=== PATIENT | female | born 1950 | race Caucasian/White ===

== ENCOUNTER 2018-06-21 05:40 | Inpatient (IN) | payer OTHER ==
[~2018-06-21] VITALS: Ht 160 cm; Wt 86.2 kg
[~2018-06-21 05:40] MED LIST: ALLOPURINOL 10100 M1 PO; AMARYL2 M1 PO; ASPIR 8181 MG PO; CELEXA20 MG PO; LASIX 20 MG TAB20 MG PO; LIPITOR 20 MG T20 M1 PO; LOPRESSOR50 PO; LOSARTAN POTAS100 MG PO; MELATONIN 10 M1 EACH PO; METFORMIN HCL500 MG PO; MULTIVITAMINS PO; NORPRAMIN10 MG PO; PRILOSEC OTC20 MG PO; SYNTHROID150 MCG PO; VITAMIN D32000 UNI1 PO
[2018-06-21 09:15] VITALS: BP 138/74
[2018-06-21 18:04] VITALS: BP 117/70
[2018-06-21 19:45] VITALS: BP 111/44
--- NOTE | 2018-06-21 19:45 | NUR ---
PT ARRIVED FROM PACU AT 17:40 IN STABLE CONDITION. A&O,X4. [address] TO KEEP SATS ABOVE 90%, NO HOME OXYGEN USE NOTED. NO SOA, CLEAR LUNG SOUNDS. S/P RIGHT ANKLE ORIF, RIGHT SPLINT AND GONZALO WRAP IN PLACE. NON-WEIGHT BEARING STATUS RIGHT FOOT. LAINEZ CATHETER IN PLACE DUE TO IMMOBILIZATION. DENIES PAIN. NO OTHER SKIN CONCERNS NOTED. AT BEDSIDE. STATES NO QUESTIONS OR CONCERNS.
[2018-06-21 22:27] LABS: HEMATOCRIT 34.1 % (37.0-47.0); HEMOGLOBIN 11.3 gm/dL (12.0-15.0); MCH 31.8 pg (26.0-34.0); MCV 96.3 fL (80.0-100.0); RBC 3.54 mil/uL (4.20-5.00); RDW 13.8 % (10.5-14.5); WBC 10.2 thou/uL (4.0-11.0)
[2018-06-21 22:49] LABS: ALBUMIN 3.3 g/dL (3.4-5.0); CALCIUM 8.3 mg/dL (8.5-10.1); CREATININE 1.9 mg/dL (0.6-1.0); POTASSIUM 4.1 mmol/L (3.5-5.1); TOTAL BILIRUBIN 0.3 mg/dL (<0.1-1.0); TOTAL PROTEIN 6.6 g/dL (6.4-8.2)
[2018-06-22 00:35] VITALS: BP 98/78
[2018-06-22 04:00] VITALS: BP 113/48
[2018-06-22 05:37] LABS: HEMATOCRIT 30.9 % (37.0-47.0); HEMOGLOBIN 10.6 gm/dL (12.0-15.0); MCH 32.2 pg (26.0-34.0); MCHC 34.2 g/dL (28.0-37.0); MCV 94.1 fL (80.0-100.0); RBC 3.28 mil/uL (4.20-5.00); RDW 13.6 % (10.5-14.5); WBC 10.5 thou/uL (4.0-11.0)
[2018-06-22 05:50] LABS: CALCIUM 8.8 mg/dL (8.5-10.1); CREATININE 1.4 mg/dL (0.6-1.0); MAGNESIUM 1.5 mg/dL (1.8-2.4); POTASSIUM 4.4 mmol/L (3.5-5.1)
--- NOTE | 2018-06-22 06:05 | NUR ---
ASSUMED CARE AT 1900, ASSESSMENT COMPLETED. 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 RIGHT LOWER EXTREMITY WRAPPED WITH BRACE AND GONZALO WRAP, SMALL AMOUNT SANGINOUS DRAINAGE, TOES WARM AND PINK WITH BRISK CAP REFILL. DENIES NAUSEA, TOLERATING ORAL INTAKE, DENIES PASSING GAS BUT HAS ACTIVE BOWEL SOUNDS. DENIES SOB, CLEAR LUNG SOUNDS. OBTAINED ORDERS FOR HOME MEDICATIONS, LABS, PAIN MEDS, AND ABX. HS BLOOD SUGAR 369, GAVE 12 UNITS LISPRO S.S. AND ORAL ANTIDIABETIC MED. ICE PACK LEAKED, SOILING GONZALO WRAP; REMOVED GONZALO, REINFORCED WITH ABD AND KERLIX AND REWRAPPED IN CLEAN GONZALO BANDAGES. LAINEZ IN PLACE DRAINING CLEAR YELLOW URINE; PER PT, SHE IS INCONT OVERNIGHTS WITH FREQ STRESS INCONT DURING THE DAY. NO OTHER CONCERNS, WILL CONTINUE TO MONITOR.
[2018-06-22 09:00] VITALS: BP 92/45
--- NOTE | 2018-06-22 11:55 | NUR ---
ASSUMED PT CARE AT 0700. ASSESSMENT COMPLETED AND IS CHARTED. BLOOD PRESSURE LOW: 92/45. RUDY NOTIFIED AND METOPROLOL HELD. PT IS AWAKE, ALERT/ORIENTED X4. REPORTS VERY LITTLE PAIN, RATES IT 0.5/10. DENIES NEED FOR PAIN MEDICATION HOWEVER DID TAKE ONE FOR THERAPY. PT UP IN CHAIR AT THIS TIME. LAINEZ REMOVED AND NEW IV STARTED RIGHT HAND IV INFILTRATED. IV FLUIDS INFUSING ORDERED FOR BLOOD PRESSURE SUPPORT. WILL CONTINUE WITH CURRENT CARE.
[2018-06-22 14:24] VITALS: BP 103/42
--- NOTE | 2018-06-22 15:22 | NUR ---
PT ADMITTED RELATED TO RIGHT ANKLE ARTHRODESIS. CM REVIEWED CHART AND SPOKE WITH CARE TEAM. CM MET WITH PT AND SPOUSE AT BEDSIDE THIS DAY. PT IS A&O X4. CM ROLE INTRODUCED. PT INDICATED SHE AND SPOUSE LIVE IN A HOUSE WITH WITH NO STEPS TO ENTER AND NO STEPS INSIDE. THEY INDIATED THAT PT HAD USED A CANE TO ASSIST WITH MOBILITY ELECTRICIAN APPRENTICE. PT INDICATED SHE HAD BEEN MOSTLY INDEPENDENT WITH ADLS ELECTRICIAN APPRENTICE AND THAT SPOUSE HAD ASSISTED WHEN NEEDED. PT AND SPOUSE INDICATED THAT THEY ANTICIPATED PT GOING FOR A POST ACUTE CARE STAY ONCE MEDICALLY STABLE. THEY LIVE NEAR [facility]. CM PROVIDED A LIST OF FACILITIES NEAR THERE FOR THEM TO REVIEW. THEY ASKED THAT REFERRALS BE SENT TO [facility] AND [facility] FOR REVIEW. CM TO FOLLOW INDICATED WITH DC PLANNING.
--- NOTE | 2018-06-22 16:24 | NUR ---
FAXED REFERRAL TO [facility] FOR SKILLED STAY LEFT MSG WITH ADM. DIRECTOR GIGI AND WILL F/U WITH THEM IN THE MORNING. DCP TO FOLLOW.
--- NOTE | 2018-06-22 16:38 | NUR ---
PT DOING WELL THIS SHIFT. LAINEZ REMOVED AT 1130, NO VOID YET. PAIN IS WELL-CONTROLLED. HAS NOT REQUESTED PAIN MEDICATION THIS AFTERNOON. UP IN CHAIR WITH FAMILY AT BEDSIDE. WILL CONTINUE WITH CURRENT CARE.
--- NOTE | 2018-06-22 18:08 | NUR ---
TRANSFERRED PT IN STABLE CONDITION [facility]. REPORT CALLED TO RECEIVING NURSE.
[2018-06-22 18:51] VITALS: BP 120/68
--- NOTE | 2018-06-22 19:03 | NUR ---
PATIENT ARRIVED TO [facility] AFTER DINNER TO ROOM [address] [place] [address].PATIENT WAS ORIENTED TO THE ROOM.PT HAS BELONGINGS AND CHART.VITALS WERE TAKEN.IV FLUIDS ARE INFUSING.CALL LIGHT, PHONE, AND PERSONAL BELONGINGS ARE WITHIN REACH.
[2018-06-22 20:20] VITALS: BP 120/68
--- NOTE | 2018-06-23 04:44 | NUR ---
Asumed PT. care at 1900. Remains A&Ox4; swallows meds whole w/o difficulty. Remains cont. B&B; Needs asst x 1 to BSC; gait steady. Remains NWB to RLE. Blood sugars WNL. Remains on heparin therapy; no s/s of bleeding noted. Remains on IVABT/R foot surgery; no adverse reactions noted. LAC SL noted; infused ABT/fluids/flushed w/o difficulty. Cast C/D/I to RLE. Pt denies pain or discomfort. No s/s of acute distress noted. Pt/ asleep in bed w/ call light/desired belongings within reach. Po fluids encouraged. Will continue to monitor.
[2018-06-23 09:45] VITALS: BP 110/43
--- NOTE | 2018-06-23 13:38 | NUR ---
MARTA reviewed chart and spoke with nursing and attending physician. [facility] and is progressing towards goals for discharge. Post-acute placement is recommended. MARTA left voice message for Karina at [facility] Bed unit to obtain fax number and check bed availability. MARTA spoke with Gal in admissions at [facility] to follow up on referral. Per Gal, they would not be able to get insurance authorization today for admission. Gal requests clinical and therapy updates to be sent to them on Tuesday for review. senior media planner to fax info to [facility] swing bed unit for review. MARTA updated nursing and attending physician. MARTA is following to assist as needed with discharge planning. [facility]
--- NOTE | 2018-06-23 14:06 | NUR ---
DISCHARGE PLANNING. POST ACUTE CARE PLACEMENT RECOMMENDED AT DISCHARGE. REFERRAL FAXED TO [facility] UNIT, ATTN: SAIDA. VERIFIED REFERRAL RECEIVED. UNIT SW AWARE. FOLLOWING TO ASSIST WITH DISCHARGE PLACEMENT NEEDS.
[2018-06-23 19:02] VITALS: BP 136/74
--- NOTE | 2018-06-23 19:36 | NUR ---
ASSUMED CARE OF PATIENT AT 0715, PATIENT ALERT AND ORIENTED X 4. UP WITH ASSIST X 1 WITH WALKER, NWB ON RIGHT FOOT, PATIENT HAS RIGHT CAST IN PLACE AND DRESSING CHANGED PER ORTHO, PATIENT WILL BE NWB X 8-12 WEEKS. PATIENT HAS RIGHT FOEARM IV IN PLACE WITH NS AT 100CC/HR, PATIENT ALSO RECEIVED IV ANTIBIOTIC X 1 THIS SHIFT. PATIENT C/O PAIN WITH RIGHT LOWER EXTREMITY, RECEIVED OXYCODONE 1 TABLET X 1 THIS SHIFT. PATIENT WORKED WITH PHYSICAL THERAPY TODAY. PAIENT RECEIVED BATH PER [facility]BE[facility]IORAL HEALTH CARE MANAGER. PATIENT WAITING FOR PLACEMENT TO REHAB, WILL NOT DISCHARGE UNTIL TUESDAY. WILL CONTINUE TO MONITOR.
--- NOTE | 2018-06-24 04:58 | NUR ---
PATIENT ALERT AND ORIENTED X4. PLEASANT AND COOPERATIVE. UP TO BSC WITH ONE ASSIST. RIGHT LEG ELEVATED WITH PILLOW. MEDICATED FOR PAIN WITH GOOD RESULTS. IVF INFUSING W/O COMPLICATION. BS MONITORED PER ORDER. RETING QUIETLY. WILL MONITOR.
[2018-06-24 08:00] VITALS: BP 164/87
--- NOTE | 2018-06-24 16:46 | NUR ---
PATIENT CARE WAS ASSUMED AT 0715.PATIENT IS ALERT AND ORIENTED X4.PATIENT IS NON-WEIGHT BEARING ON THE RIGHT FOOT.RIGHT FOOT IS WRAPPED IN A HARD CAST.PATIENT TRANSFERS WITH X1 ASSIST TO [facility].PATIENT HAS FLUIDS INFUSING IN IV.PATIENT WAS GIVEN PAIN MEDICATIONS AT 0600, WILL CONTINUE TO OFFER PAIN MEDS TO KEEP PAIN UNDER CONTROL.PATIENT HAS NO OTHER COMPLAINS AT THIS TIME.CALL LIGHT, PHONE, AND PERSONAL BELONGINGS ARE WITHIN REACH.
[2018-06-24 19:33] VITALS: BP 163/33
--- NOTE | 2018-06-25 03:44 | NUR ---
PATIENT ALERT AND ORIENTED X4. UP TO BSC WITH WALKER AND ONE ASSIST FOR NWB ON HER RIGHT FOOT. CAST IS DRY AND INTACT. BS MONITORED PER ORDER. IV PATENT. MEDICATED FOR PAIN X1 AT TIME OF NOTE. RESTING QUIETLY. WILL MONITOR.
[2018-06-25 06:57] LABS: HEMATOCRIT 28.8 % (37.0-47.0); HEMOGLOBIN 9.8 gm/dL (12.0-15.0); MCH 31.8 pg (26.0-34.0); MCHC 33.9 g/dL (28.0-37.0); RBC 3.07 mil/uL (4.20-5.00); WBC 9.7 thou/uL (4.0-11.0)
[2018-06-25 07:06] LABS: CALCIUM 9.1 mg/dL (8.5-10.1); MAGNESIUM 1.4 mg/dL (1.8-2.4); POTASSIUM 3.9 mmol/L (3.5-5.1)
[2018-06-25 07:49] VITALS: BP 189/98
[2018-06-25 07:50] VITALS: BP 107/60
[2018-06-25 08:10] VITALS: BP 179/91
[2018-06-25 17:25] VITALS: BP 178/100
--- NOTE | 2018-06-25 19:48 | NUR ---
ASSUMED CARE OF PATIENT AT 0715, PATIENT ALERT AND ORIENTED X 4. UP WITH ASSIST X 1, NWB ON RIGHT LEG, HARD CAST AND DRESSING IN PLACE. PATIENT C/O MILD PAIN THIS AM, C/O PAIN THIS SHIFT X 2, JUST GAVE OXYCODONE 1 TABLET. BLOOD SUGAR MONITORING ORDERED, JUST CHECKED BS DUE TO PATIENT FEELING SWEATY, BS 121. PATIENT'S BLOOD PRESSURE HAS BEEN ELEVATED TODAY AND PATIENT C/O HEADACHE LAST BLOOD PRESSURE 173/100, NOTIFIED DR OROZCO, HE ORDERED TO GIVE HS BLOOD PRESSURE MEDS NOW, GIVEN BY THIS RN. PATIENT HAS LEFT FOREARM IV IN PLACE, FLUSHED WITH NORMAL SALINE AND REMIANS PATIENT. MAG CITRATE NOT GIVEN PATIENT HAD 3 MEDIUM STOOLS TODAY. PATIENT MAY DISCHARGE TOMORROW IF INSURANCE AUTH. RECEIVED FOR REHAB PATIENT NWB FOR 8-12 WEEKS PER JOHNNY LOO. WILL CONTINUE TO MONITOR.
[2018-06-25 20:12] VITALS: BP 152/85
--- NOTE | 2018-06-26 04:36 | NUR ---
PATIENTS CARES WERE ASSUMED AT SHIFT CHANGE. PATIENT WAS ASSESSSED AND MEDS WERE PASSED. PATIENT IS WAITING FOR A PLACMENT FOR REHAB. PATIENT HAS DISPLAYED GOOD MOTION WITH NOT PUTTING WEIGHT ON THAT LEG. SHE USES THE WALKER PROPERLY. HOURLY ROUNDING WAS DONE. PATIENT DID APPER TO BE SLEEPING MOST OF THIS SHIFT. THE BED IS IN A LOW AND LOCKED POSITION. THE BED ALARM IS ON.
[2018-06-26 08:25] VITALS: BP 167/93
--- NOTE | 2018-06-26 08:28 | NUR ---
ASSUMED PT CARE AT 0700. ASSESSMENT COMPLETED AND IS CHARTED. VSS. PT IS AWAKE, ALERT/ORIENTED X4. REPORTS PAIN RATED 5/10 TO RIGHT FOOT. DRESSING IS CDI. PT REPORTS SOME NUMBNESS TO TOES, THIS IS NOT A NEW FINDING. CAP REFIL IS <3 SECONDS, PT ABLE TO MOVE TOES. NO IMMEDIATE CONCERNS OR ISSUES AT THIS TIME. WILL CONTINUE WITH CURRENT CARE.
--- NOTE | 2018-06-26 10:21 | NUR ---
yumi called Karina at [facility] 4th floor skilled swing bed unit, left message for her to call Saadia Kaplan our case managment contact regarding availability on a swing bed today.
--- NOTE | 2018-06-26 14:09 | NUR ---
MARTA reviewed chart and spoke with nursing and attending physician. Pt is medically stable for discharge today. Awaiting insurance authorization for SNF level of care. facility planner sent updates to [facility]. MARTA left voice message for Alyssa in admissions requesting call back. MARTA spoke with Karina in the swing bed unit/SNF unit show states they do not have any beds available and do not anticipate any discharges this week. MARTA met with pt and spouse at bedside to provide update. Pt and spouse state that their preference is [facility]. MARTA is following to assist as needed with discharge planning.
--- NOTE | 2018-06-26 16:41 | NUR ---
PT PROGRESSING WELL THIS SHIFT. PAIN IS WELL CONTROLLED WITH OXYCODONE. PT IS NOW ABLE TO HOP TO BATHROOM WITH WALKER AND COMPLIES WITH NON-WEIGHTBEARING STATUS. NO OTHER ISSUES AT THIS TIME. WILL CONTINUE WITH CURRENT CARE.
[2018-06-26 20:08] VITALS: BP 141/74
[2018-06-26 21:57] VITALS: BP 141/74
--- NOTE | 2018-06-27 04:43 | NUR ---
Assumed pt. care at 1900. Pt. remains A&Ox4; swallows meds whole w/o difficulty. Remains cont. B&B; ambulates w/ standby asst and walker; gait steady. Blood sugars WNL. Remains on heparin therapy; no s/s of bleeding noted. L wrist SL noted and flushed w/ NS w/o difficulty. Cast to RLE remains C/D/I, at this time. Pt. denies pain or discomfort. No s/s of acute distress noted. Pt. asleep in bed w/ call light/desired belongings within reach. PO fluids encouraged. Will continue to monitor.
[2018-06-27 08:18] VITALS: BP 134/65
[2018-06-27] MEDS ORDERED: MAGNESIUM400 MG PO (09:34)
[2018-06-27] MEDS ORDERED: COLACE 100 MG100 MG PO (09:34)
[2018-06-27] MEDS ORDERED: NOVOLOG100 UNIT/1 SUBQ (09:35)
[2018-06-27] MEDS ORDERED: ENOXAPARIN40 MG/0.1 SUBQ (09:42)
--- NOTE | 2018-06-27 10:00 | NUR ---
dp spoke with Ramesh/admissions at [facility], [facility] requested therapy for today, Mar, and med list. DP will send so we can obtain auth. DP let Ramesh know that patient is ready and has dc papers.
--- NOTE | 2018-06-27 13:46 | NUR ---
DISCHARGE NOTE: SW reviewed chart and spoke with nursing and attending physician. Pt is medically stable for discharge to SNF today. senior planner faxed updates to [facility] earlier today. MARTA received call from Ramesh, at [facility], who states they are working on authorization from pt's insurance. MARTA spoke with Mahogany at [facility], who states auth has just been given to [facility]. MARTA met with pt at bedside to provide update. Pt's spouse will provide transportation to [facility]. Awaiting call back from Ramesh at this time to confirm all is in place. Script for narcotic faxed to [facility]. Original sent with pt in chart copy. Chart copy updated. Nursing provided number to call report. No additional SW needs identified at this time, but is available to assist should needs arise.
--- NOTE | 2018-06-27 14:19 | NUR ---
ASSUMED CARE OF PATIENT THIS MORNING. PATIENT IS A&OX4. SHE GETS UP WITH SBA AND WALKER WHEN AMBULATING. PATIENT IS ON A LOW DOSE SLIDING SCALE FOR INSULIN, NIDDM. SHE HAS RECEIVED OXYCODONE RATED PAIN 5/10 AND HAD PARTIAL PAIN RELIEF 3/10. SHE IS TRANSFERRING TO A SNF VIA . SHE RECEIVED AM MEDS THIS MORNING AND TOLERATED THEM WELL. SHE RECEIVED 4 UNITS OF INSULIN THIS AFTERNOON. PATIENT IS CURRENTLY LYING IN BED AWAITING DISMISSAL. SHE CALLS OUT [facility] FOR ASSISTANCE.
== END 2018-06-27 15:20 | disposition home health service (06) | DRG 981 ==
LOC: OR 05:40 → TBA 05:41 → OR 10:06 → 4E 17:37 → OR 17:38 → SICU 17:38 → 4E 17:38 → ENTRNSPT 06-22 17:42 → SICU 06-22 18:21 → EDTRNSPTSTS 06-23 11:07 → ENTRNSPT 06-27 14:50 → EDTRNSPTSTS 06-27 15:00 → SICU 06-27 15:20
PROVIDERS: Nurse Practitioner Acute Care; ADMIT Internal Medicine
PROC: 0L8N3ZZ Division of Right Lower Leg Tendon, Percutaneous Approach (ICD-10-PCS; principal; 2018-06-21)
PROC: 0SGH0JZ Fusion of Right Tarsal Joint with Synthetic Substitute, Open Approach (ICD-10-PCS; principal; 2018-06-21)
PROC: 0SPF04Z Removal of Internal Fixation Device from Right Ankle Joint, Open Approach (ICD-10-PCS; principal; 2018-06-21)
DX: A52.16 Charcot's arthropathy (tabetic) (principal); N17.0 Acute kidney failure with tubular necrosis; M21.071 Valgus deformity, not elsewhere classified, right ankle; S82.891A Other fracture of right lower leg, initial encounter for closed fracture; M19.071 Primary osteoarthritis, right ankle and foot; M24.571 Contracture, right ankle; M20.41 Other hammer toe(s) (acquired), right foot; E78.00 Pure hypercholesterolemia, unspecified; K21.9 Gastro-esophageal reflux disease without esophagitis; M10.9 Gout, unspecified; Z96.653 Presence of artificial knee joint, bilateral; E11.22 Type 2 diabetes mellitus with diabetic chronic kidney disease; E11.42 Type 2 diabetes mellitus with diabetic polyneuropathy; I25.10 Atherosclerotic heart disease of native coronary artery without angina pectoris; E03.9 Hypothyroidism, unspecified; N18.9 Chronic kidney disease, unspecified; M62.84 Sarcopenia; I12.9 Hypertensive chronic kidney disease with stage 1 through stage 4 chronic kidney disease, or unspecified chronic kidney disease; E78.5 Hyperlipidemia, unspecified; E83.42 Hypomagnesemia; K59.00 Constipation, unspecified; E66.9 Obesity, unspecified; Z68.33 Body mass index [BMI] 33.0-33.9, adult; Z88.1 Allergy status to other antibiotic agents; Z88.8 Allergy status to other drugs, medicaments and biological substances; Z86.73 Personal history of transient ischemic attack (TIA), and cerebral infarction without residual deficits; Z98.41 Cataract extraction status, right eye; Z98.42 Cataract extraction status, left eye; Z90.49 Acquired absence of other specified parts of digestive tract; Z79.899 Other long term (current) drug therapy; Z79.82 Long term (current) use of aspirin; Z88.6 Allergy status to analgesic agent; X58.XXXA Exposure to other specified factors, initial encounter; Y93.89 Activity, other specified; Y92.89 Other specified places as the place of occurrence of the external cause; Y99.8 Other external cause status
CPT/HCPCS: 10084; 10783; 15002; 50010; 50101; 50386; 50951; 52124; 53341; 55430; 56525; 56526; 57091; 57180; 62110; 62900; 64039; 70005